=== PATIENT | male | born 1940 | race Two or more races ===

== ENCOUNTER 2023-03-10 17:38 | Emergency (ER) | payer OTHER ==
[2023-03-10 17:49] VITALS: BP 144/80; PULSE 94; RESP 18; TEMP 97.9; BMI 22.3
[2023-03-10] MEDS ORDERED: GABAPENTIN 100 MG CAPSULE PO ONE (18:35)
[2023-03-10] MEDS ORDERED: KETOROLAC TROMETHAMINE 30 MG/1 ML VIAL IM ONE (18:36)
[2023-03-10] MEDS ORDERED: KETOROLAC TROMETHAMINE 15 MG/ML VIAL ONE (18:40)
[2023-03-10] MEDS ORDERED: LIDOCAINE 5% TOPICAL PATCH TP ONE (18:41)
[2023-03-10] MEDS ORDERED: LIDOCAINE 5% TOPICAL PATCH ONE ×2 (19:20→19:23)
[2023-03-11] MEDS ORDERED: LIDOCAINE PATCH REMOVAL MC SCH (07:00)
== END 2023-03-10 22:29 | disposition home or self-care (01) ==
LOC: JER 17:38
PROC: 3E0233Z Introduction of Anti-inflammatory into Muscle, Percutaneous Approach (ICD-10-PCS; principal; 2023-03-10)
DX: M79.2 Neuralgia and neuritis, unspecified (principal); M79.604 Pain in right leg; M79.605 Pain in left leg; G89.29 Other chronic pain; R05.9 Cough, unspecified
CPT/HCPCS: 71046-TC-FY; 73552-TC-LT-FY; 93005; 93010; 96372; 99284-25

== ENCOUNTER 2024-01-11 10:49 | Emergency (ER) | payer OTHER ==
[2024-01-11 11:29] VITALS: BMI 22.8
[2024-01-11 12:47] LABS: BASO % 0.6 % (0-2.0); EOS % 1.8 % (0-4.5); HEMATOCRIT 40.2 % (35.4-49); HEMOGLOBIN 13.4 GM/dL (11.7-16.9); MCH 25.9 pg (25.7-33.7); MCHC 33.3 g/dl (32.0-35.9); MEAN CELL VOLUME 77.6 fl (80-96); MEAN PLT VOLUME 7.6 fl (7.5-11.1); NEUT % 59.6 % (42.8-82.8); PLATELET COUNT 295 10^3/uL (134-434); RBC 5.18 M/mm3 (4.00-5.60); RDW 16.2 % (11.9-15.9); WHITE BLOOD COUNT 7.1 K/mm3 (4.0-10.0)
[2024-01-11 12:53] LABS: INR 0.92 (0.83-1.09); PROTHROMBIN TIME (PATIENT) 10.6 SEC (9.7-13.0)
[2024-01-11 12:56] LABS: ACTIVATED PTT 35.3 SECONDS (25.2-36.5)
[2024-01-11 13:03] LABS: POTASSIUM 4.2 mmol/L (3.5-5.1)
[2024-01-11 13:05] LABS: CALCIUM 9.6 mg/dL (8.5-10.1)
[2024-01-11 13:06] LABS: ALBUMIN 3.5 g/dl (3.4-5.0); BLOOD UREA NITROGEN 16.4 mg/dL (7-18)
[2024-01-11 13:09] LABS: CREATININE 0.9 mg/dL (0.55-1.3)
[2024-01-11 13:10] LABS: BILIRUBIN,TOTAL 0.5 mg/dL (0.2-1)
[2024-01-11] MEDS ORDERED: ACETAMINOPHEN INJECTION 100 ML IVPB ONE (13:16)
[2024-01-11] MEDS: ACETAMINOPHEN 1000 MG/100 ML BAG IVPB ONE (13:24)
[2024-01-11 13:37] LABS: PH,URINE 7.5 (5.0-8.0); URINE APPEARANCE CLEAR; URINE BILIRUBIN NEGATIVE (NEGATIVE); URINE COLOR YELLOW; URINE GLUCOSE (UA) NEGATIVE (NEGATIVE); URINE KETONE NEGATIVE (NEGATIVE); URINE LEUK ESTERASE NEGATIVE (NEGATIVE); URINE NITRITE NEGATIVE (NEGATIVE); URINE PROTEIN NEGATIVE (NEGATIVE); URINE UROBILINOGEN 0.2 mg/dL (0.2-1.0)
[2024-01-11 16:54] VITALS: BP 152/88; PULSE 72; RESP 19; TEMP 97.8
== END 2024-01-11 17:37 | disposition home or self-care (01) ==
LOC: JER 10:49
PROC: 3E033NZ Introduction of Analgesics, Hypnotics, Sedatives into Peripheral Vein, Percutaneous Approach (ICD-10-PCS; principal; 2024-01-11)
DX: R10.9 Unspecified abdominal pain (principal); R07.89 Other chest pain; R53.1 Weakness
CPT/HCPCS: 36415; 71260-TC; 74177-TC; 80053; 81003; 83605; 84484; 85025; 85610; 85730; 86850; 86900; 86901; 87086; 93005; 93010; 96374; 99285-25; J0131; Q9967